=== PATIENT | female | born 1965 | race Hispanic/Latino ===

== ENCOUNTER 2018-01-13 16:47 | Inpatient (IN) | payer BC ==
[~2018-01-13] VITALS: Ht 160 cm; Wt 133.5 kg
[~2018-01-13 16:47] MED LIST: BENICAR40 MG PO; CALTRATE 600 W1 EACH PO; FUROSEMIDE40 MG PO; GLUCOVANCE 5-51 EACH PO; LEVEMIR100 UNIT/1 SQ; NOVOLOG MI100 UNIT/1 SQ; OMEPRAZOLE40 MG PO; SIMVASTATIN20 MG PO
--- OUTSIDE RECORDS SUMMARY | 2018-01-13 16:51 | XMS REPORT ---
Author Author [facility] Address Unknown Phone Unavailable Care Team Providers Care Rooming House Keeper Name Role Phone ABIEL WOLF Unavailable Unavailable Problems This patient has no known problems. Allergies, Adverse Reactions, Alerts This patient has no known allergies or adverse reactions. Medications This patient has no known medications. Results Test Description Test Time Test Comments Text Results Atomic Results Result Comments ANKLE 3+ VIEWS LEFT [place] [address] Patient Name: VINAYAK AZEVEDO MR #: [id number] : 1965 Age/Sex: 52/F Req #: [id number] Adm Physician: Ordered by: ABIEL WOLF MD Report #: [id number] Location: ER Room/Bed: Procedure: [id number] DX/ANKLE 3+ VIEWS LEFT Exam Date: 09/12/17 Exam Time: 1525 REPORT STATUS: Signed Left Ankle - 3 views HISTORY: Pain. COMPARISON: None available. FINDINGS: Bones: No acute displaced fracture. No expansile lytic or sclerotic lesion. Joints: The joint spaces are well-maintained. No dislocation. Soft tissues: The soft tissues appear unremarkable. IMPRESSION: No acute radiographic abnormality. Signed by: Dr. Medhat Hinton M.D. on 2016 3:39 PM Dictated By: MEDHAT HINTON MD [id number] Transcribed By: DAV on 09/12/171538 COPY TO: ABIEL WOLF MD FOOT LEFT COMPLETE [place] [address] Patient Name: VINAYAK AZEVEDO MR #: [id number] : 1965 Age/Sex: 52/F Req #: [id number] Adm Physician: Ordered by: ABIEL WOLF MD Report #: [id number] Location: ER Room/Bed: Procedure: [id number] DX/FOOT LEFT COMPLETE Exam Date: 09/12/17 Exam Time: 1525 REPORT STATUS: Signed Left foot - 3 views HISTORY: Pain. COMPARISON: None available. FINDINGS: Bones: No acute displaced fracture. No expansile lytic or sclerotic lesion. Joints: The joint spaces are well-maintained. No dislocation. Soft tissues: The soft tissues appear unremarkable. IMPRESSION: No acute radiographic abnormality. Signed by: Dr. Medhat Hinton M.D. on 09/12/2017 3: 39 PM Dictated By: MEDHAT HINTON MD 38 Transcribed By: DAV on 09/12/171538 COPY TO: ABIEL WOLF MD
[2018-01-13 17:51] LABS: BILIRUBIN,URINE 1+ (NEGATIVE); KETONES,URINE NEGATIVE (NEGATIVE); LEUKOCYTE ESTERASE ,URINE 1+ (NEGATIVE); URINE UROBILINOGEN 1 mg/dL (0.2 - 1)
[2018-01-13 17:52] LABS: CLARITY,URINE SL CLOUDY (CLEAR); COLOR,URINE STRAW (YELLOW); NITRITE,URINE POSITIVE (NEGATIVE); PROTEIN,URINE DIPSTICK TRACE (NEGATIVE)
[2018-01-13 18:05] LABS: BACTERIA,URINE MANY /HPF; EPITHELIAL CELLS,URINE MODERATE /LPF; RBC,URINE 0-5 /HPF (0-5)
--- NOTE | 2018-01-13 19:12 | Diagnostic Imaging Report ---
PROCEDURE: CT ABDOMEN AND PELVIS WITHOUT CONTRAST TECHNIQUE: The abdomen and pelvis were scanned utilizing a multidetector helical scanner from the diaphragm to the lesser trochanter after the oral administration of water. No IV contrast was administered per protocol. Coronal and sagittal multiplanar reformations were obtained. COMPARISON: Patients [facility], CT, CT ABDOMEN/PELVIS , 06/28/2013, 19:15. INDICATIONS: STONE FINDINGS: ABSENCE OF INTRAVENOUS CONTRAST DECREASES SENSITIVITY FOR DETECTION OF FOCAL LESIONS AND VASCULAR PATHOLOGY. LOWER THORAX: Multiple bilateral calcified granulomata. Lung bases are otherwise clear. HEPATOBILIARY: Marked diffuse hepatic steatosis. The liver is enlarged, measuring 15.8 cm in the right midclavicular line. Calcified granulomata. No other focal lesions. No biliary ductal dilation. Cholecystectomy clips. SPLEEN: No splenomegaly. Multiple calcified splenic granulomata. PANCREAS: No focal masses or ductal dilatation. ADRENALS: No adrenal nodules. KIDNEYS/URETERS: No renal or ureteral calculi, hydronephrosis, or obstruction. Likely, cortical scarring in the left interpolar region. PELVIC ORGANS/BLADDER: Bladder is decompressed, but grossly unremarkable. Uterus is absent. No adnexal masses. PERITONEUM / RETROPERITONEUM: No free air or fluid. Diastases of the recti muscles, with prominent abdominal pannus LYMPH NODES: No lymphadenopathy. VESSELS: Unremarkable. GI TRACT: No bowel dilation or evidence of obstruction. No pericolonic inflammatory changes. BONES AND SOFT TISSUES: No aggressive lytic lesions. Degenerative changes in the lower thoracic and lumbosacral spine. Postoperative changes in the anterior midline lower pelvic wall, without free fluid or fluid collections. Subcutaneous injection sites in the anterior pelvic wall. IMPRESSION: 1. no renal or ureteral calculi. No hydronephrosis, hydroureter, or evidence of obstruction. 2. Hepatomegaly with marked diffuse hepatic steatosis. No suspicious focal lesions. 3. Prior granulomatous disease. Josh Carmichael M.D. Dictated by: Josh Carmichael M.D. on 01/13/2018 at 19:12 Electronically approved by: Josh Carmichael M.D. on 01/13/2018 at 19:12
[2018-01-13] MEDS ORDERED: CEFTRIAXONE SOD 1 GM VIAL IM ONE (19:30)
[2018-01-13] MEDS ORDERED: SODIUM CHLORIDE 0.9% 1000ML 1,000 ML IV STA (20:59)
[2018-01-13] MEDS ORDERED: CEFTRIAXONE SOD 1 GM VIAL IV STA (21:42)
[2018-01-13] MEDS ORDERED: METOPROLOL SUCC50 MG PO (22:03)
[2018-01-13] MEDS ORDERED: HYDROCHLOROTHIA25 MG PO (22:03)
[2018-01-13 22:24] LABS: BASOPHILS % 0.4 % (0.0-1.0); EOSINOPHILS # (AUTO) 0.3 (0.0-0.4); EOSINOPHILS % 2.9 % (0.0-6.0); HEMATOCRIT 39.8 % (34.2-44.1); HEMOGLOBIN 12.9 g/dL (12.0-16.0); LYMPHOCYTES % 27.4 % (18.0-39.1); MEAN CORPUSCULAR HEMOGLOBIN 27.4 pg (28-32); MEAN CORPUSCULAR HGB CONC 32.4 g/dL (31-35); MEAN CORPUSCULAR VOLUME 84.7 fL (81-99); MONOCYTES % 8.8 % (4.4-11.3); NEUTROPHILS # (AUTO) 6.6 (2.1-6.9); NEUTROPHILS % 60.1 % (38.7-80.0); PLATELET COUNT 299 x10e3/uL (140-360); RED CELL DISTRIBUTION WIDTH 13.8 % (11.7-14.4)
[2018-01-13 22:40] LABS: ALBUMIN 3.3 g/dL (3.5-5.0); ALBUMIN/GLOBULIN RATIO 0.9 (0.8-2.0); ANION GAP 15.5 mmol/L (8-16); CALCIUM 10.5 mg/dL (8.4-10.2); CREATININE, SERUM 1.61 mg/dL (0.57-1.11); POTASSIUM 3.5 mmol/L (3.5-5.1)
[2018-01-13] MEDS ORDERED: DEXTROSE 50% SYRINGE 50 ML IV PRN (23:45)
[2018-01-14] VITALS (9 sets, daily range): BP systolic 113–165; BP diastolic 56–76
[2018-01-14] MEDS: SODIUM CHLORIDE 0.9% 1000ML 1,000 ML IV SCH ×4 (01:59→20:28)
[2018-01-14 06:41] LABS: BASOPHILS % 0.4 % (0.0-1.0); EOSINOPHILS # (AUTO) 0.3 (0.0-0.4); EOSINOPHILS % 3.5 % (0.0-6.0); HEMATOCRIT 35.8 % (34.2-44.1); HEMOGLOBIN 11.5 g/dL (12.0-16.0); LYMPHOCYTES # (AUTO) 2.9 (1.0-3.2); LYMPHOCYTES % 32.2 % (18.0-39.1); MEAN CORPUSCULAR HEMOGLOBIN 27.1 pg (28-32); MEAN CORPUSCULAR HGB CONC 32.1 g/dL (31-35); MEAN CORPUSCULAR VOLUME 84.4 fL (81-99); MONOCYTES # (AUTO) 0.8 (0.2-0.8); NEUTROPHILS % 54.6 % (38.7-80.0); PLATELET COUNT 235 x10e3/uL (140-360); RED BLOOD COUNT 4.24 x10e6/uL (3.6-5.1); RED CELL DISTRIBUTION WIDTH 13.9 % (11.7-14.4)
[2018-01-14 07:05] LABS: ALBUMIN 2.8 g/dL (3.5-5.0); ALBUMIN/GLOBULIN RATIO 0.9 (0.8-2.0); ANION GAP 12.5 mmol/L (8-16); CALCIUM 9.9 mg/dL (8.4-10.2); CREATININE, SERUM 1.17 mg/dL (0.57-1.11); POTASSIUM 3.5 mmol/L (3.5-5.1)
[2018-01-14] MEDS: ONDANSETRON HCL INJ 2 MG/ML VIAL IV PRN (07:58)
[2018-01-14] MEDS: MORPHINE SULFATE 2 MG/ML SYR IV PRN (07:58)
[2018-01-14 08:12] LABS: CHOL/HDL RATIO 4.3 (3.0-3.6)
--- NOTE | 2018-01-14 08:31 | History and Physical ---
PRIMARY CARE PHYSICIAN: Dr. Edmund Boggs CHIEF COMPLAINT: Left flank pain. HISTORY OF PRESENT ILLNESS: This is a 52-year-old woman with a history of urinary tract infection, now developing left flank pain for the past few days. Therefore, came to the hospital. Denies any nausea, vomiting or fever. Here she was found to have pyelonephritis, and admitted for further evaluation and management. PAST MEDICAL HISTORY: Diabetes mellitus, type 2, hypertension, morbid obesity, chronic kidney disease, stage unknown, hyperlipidemia, acute gastroenteritis, hyperkalemia, urinary tract infection with Klebsiella pneumonia as well. PAST SURGICAL HISTORY: Abdominal hernia repair, knee replacement. ALLERGIES: PER ELECTRONIC MEDICAL RECORD. FAMILY HISTORY/SOCIAL HISTORY: The patient is . She has 5 children. Denies any alcohol, illicits or cigarettes. MEDICATIONS: Per electronic medical record. REVIEW OF SYSTEMS: Denies any dizziness or chest pain. PHYSICAL EXAMINATION VITAL SIGNS: Reviewed. GENERAL: A tired-appearing woman resting in bed. HEENT: Anicteric. Pupils respond to light. No oral lesions. CARDIOVASCULAR: Normal S1 and S2. LUNGS: Moderate breath sounds. ABDOMEN: Soft, nontender and nondistended. Left flank tender. Right flank nontender. EXTREMITIES: No edema. SKIN: Dry. PSYCHIATRIC: Flat affect. LABS: Reviewed. MEDICATIONS: Reviewed. ASSESSMENT AND PLAN: A 52-year-old woman with: 1. Acute left-sided pyelonephritis: Will continue intravenous ceftriaxone. Follow up cultures. 2. Acute kidney injury: Continue intravenous fluids. Renal function beginning to improve. She does have chronic kidney disease, stage unknown. 3. Diabetes mellitus, type 2: Obtain hemoglobin A1c and lipid panel. Resume insulin regimen. 4. Hyperlipidemia: Continue statin. 5. Hypertension: Continue beta rocio. 6. Hepatomegaly/hepatic steatosis: Related to morbid obesity. 7. Morbid obesity: Body mass index is 52.1. Needs caloric restriction output. 8. Prophylaxis: Will use heparin and proton pump inhibitor. 9. Disposition: Continue intravenous fluids and antibiotics. Follow up cultures. Job#: [id number] CORA
[2018-01-14] MEDS: METOPROLOL SUCCINATE 50 MG TAB XL PO SCH (08:41)
[2018-01-14] MEDS: CEFTRIAXONE SOD 1 GM VIAL IV SCH ×2 (08:41→20:28)
[2018-01-14] MEDS: INSULIN ASPART 70/30 100 UNITS/ML VIAL SC SCH ×2 (08:42→16:30)
[2018-01-14] MEDS: HEPARIN SOD (PORCINE) 5,000 UNIT/ML VIAL SC SCH ×2 (08:43→20:29)
[2018-01-14] MEDS: INSULIN DETEMIR 100 UNIT/ML PEN SQ SCH ×2 (08:43→21:00)
[2018-01-14] MEDS: INSULIN REGULAR, HUMAN 100 UNIT/1 ML 3ML VIAL SQ SCH ×4 (08:44→21:00)
[2018-01-14] MEDS ORDERED: INSULIN DETEMIR SQ SCH (09:00)
[2018-01-14] MEDS ORDERED: NON-FORMULARY MEDICATION (Insuln Asp Prt/Insulin Aspart (Novolog Mix 70-30 Flexpen Syrn) 3 SQ SCH (09:00)
[2018-01-14] MEDS: SIMVASTATIN 20 MG TAB PO SCH (20:28)
[2018-01-14] MEDS: PANTOPRAZOLE SOD 40 MG TABEC PO SCH (20:28)
[2018-01-15] VITALS (8 sets, daily range): BP systolic 106–150; BP diastolic 57–87
[2018-01-15] MEDS: SODIUM CHLORIDE 0.9% 1000ML 1,000 ML IV SCH (02:44)
[2018-01-15] MEDS: INSULIN REGULAR, HUMAN 100 UNIT/1 ML 3ML VIAL SQ SCH ×4 (07:30→20:51)
[2018-01-15] MEDS: INSULIN ASPART 70/30 100 UNITS/ML VIAL SC SCH ×3 (07:30→16:30)
[2018-01-15] MEDS ORDERED: HYDRALAZINE HCL 20 MG/ML VIAL IV PRN (09:00)
[2018-01-15] MEDS: HEPARIN SOD (PORCINE) 5,000 UNIT/ML VIAL SC SCH ×2 (09:00→20:51)
[2018-01-15] MEDS ORDERED: ACETAMINOPHEN 325 MG TAB PO PRN (09:00)
[2018-01-15] MEDS: INSULIN DETEMIR 100 UNIT/ML PEN SQ SCH ×2 (09:00→20:52)
[2018-01-15] MEDS: CEFTRIAXONE SOD 1 GM VIAL IV SCH ×2 (09:00→20:50)
[2018-01-15] MEDS: METOPROLOL SUCCINATE 50 MG TAB XL PO SCH (09:00)
[2018-01-15] MEDS: PANTOPRAZOLE SOD 40 MG TABEC PO SCH (20:50)
[2018-01-15] MEDS: SIMVASTATIN 20 MG TAB PO SCH (20:50)
[2018-01-15] MEDS: MORPHINE SULFATE 2 MG/ML SYR IV PRN (21:00)
[2018-01-15] MEDS: ONDANSETRON HCL INJ 2 MG/ML VIAL IV PRN (21:00)
[2018-01-16 00:23] VITALS: BP 142/83
[2018-01-16 05:17] VITALS: BP 106/88
[2018-01-16 07:25] LABS: BASOPHILS % 0.6 % (0.0-1.0); EOSINOPHILS # (AUTO) 0.3 (0.0-0.4); EOSINOPHILS % 3.6 % (0.0-6.0); HEMATOCRIT 33.7 % (34.2-44.1); HEMOGLOBIN 11.1 g/dL (12.0-16.0); LYMPHOCYTES # (AUTO) 2.5 (1.0-3.2); LYMPHOCYTES % 34.5 % (18.0-39.1); MEAN CORPUSCULAR HEMOGLOBIN 27.5 pg (28-32); MEAN CORPUSCULAR HGB CONC 32.9 g/dL (31-35); MEAN CORPUSCULAR VOLUME 83.4 fL (81-99); MONOCYTES # (AUTO) 0.6 (0.2-0.8); MONOCYTES % 8.3 % (4.4-11.3); NEUTROPHILS # (AUTO) 3.8 (2.1-6.9); NEUTROPHILS % 52.7 % (38.7-80.0); PLATELET COUNT 199 x10e3/uL (140-360); RED BLOOD COUNT 4.04 x10e6/uL (3.6-5.1); RED CELL DISTRIBUTION WIDTH 13.6 % (11.7-14.4)
[2018-01-16] MEDS: INSULIN ASPART 70/30 100 UNITS/ML VIAL SC SCH (07:30)
[2018-01-16] MEDS: INSULIN REGULAR, HUMAN 100 UNIT/1 ML 3ML VIAL SQ SCH (07:30)
[2018-01-16 08:00] VITALS: BP 138/80
[2018-01-16 08:05] LABS: ANION GAP 10.7 mmol/L (8-16); BLOOD UREA NITROGEN 12 mg/dL (7-26); BUN/CREATININE RATIO 14 (6-25); CALCIUM 9.6 mg/dL (8.4-10.2); CARBON DIOXIDE 24 mmol/L (22-29); CHLORIDE 110 mmol/L (98-107); CREATININE, SERUM 0.85 mg/dL (0.57-1.11); EST GLOMERULAR FILTRATION RATE > 60 ML/MIN (60-); GLUCOSE 114 mg/dL (74-118); POTASSIUM 3.7 mmol/L (3.5-5.1); SODIUM 141 mmol/L (136-145)
[2018-01-16 08:22] LABS: MAGNESIUM 0.9 MG/DL (1.3-2.1)
[2018-01-16] MEDS: METOPROLOL SUCCINATE 50 MG TAB XL PO SCH (08:57)
[2018-01-16] MEDS: CEFTRIAXONE SOD 1 GM VIAL IV SCH (08:57)
[2018-01-16] MEDS: INSULIN DETEMIR 100 UNIT/ML PEN SQ SCH (09:00)
[2018-01-16] MEDS: HEPARIN SOD (PORCINE) 5,000 UNIT/ML VIAL SC SCH (09:00)
[2018-01-16] MEDS ORDERED: CEFTIN PO (09:18)
[2018-01-16] MEDS ORDERED: TYLENOL WITH C1 EACH PO (09:18)
[2018-01-16] MEDS ORDERED: MAGNESIUM OXID400 MG PO (09:18)
[2018-01-16] MEDS ORDERED: MAGNESIUM SULFATE 2GM/50ML 50 ML IV ONE (10:00)
--- NOTE | 2018-01-17 00:54 | Discharge Summary ---
ADMISSION DIAGNOSES 1. Acute left-sided pyelonephritis. 2. Acute kidney injury. 3. Diabetes, type 2. 4. Hyperlipidemia. 5. Hypertension. 6. Hepatomegaly. 7. Hepatic steatosis. 8. Morbid obesity. DISCHARGE DIAGNOSES 1. Acute left-sided pyelonephritis. 2. Acute kidney injury. 3. Diabetes, type 2. 4. Hyperlipidemia. 5. Hypertension. 6. Hepatomegaly. 7. Hepatic steatosis. 8. Morbid obesity. 9. Hypomagnesemia. HISTORY: Patient has a history of type-2 diabetes, hypertension, morbid obesity, CKD, stage unknown, hyperlipidemia, acute gastroenteritis, hyperkalemia, UTI with Klebsiella pneumoniae as well. Surgical history of abdominal hernia repair and knee replacement. HOSPITAL COURSE: A 52-year-old female with the history of UTI, now developing left flank pain for the past 2 days; therefore, she came to the hospital. On admission, she had a CT of the abdomen that showed no renal or ureteral calculi. No hydronephrosis, hydroureter or evidence of obstruction. Hepatomegaly with marked diffuse hepatic steatosis. No suspicious focal lesions. Blood cultures were negative. Urine culture showed E. coli and strep group B sensitive to Rocephin. On admission, she was started on Rocephin and IV fluids. At time of discharge, WBC was 7.14, hemoglobin of 11.1, hematocrit of 33.7. Sodium 141, potassium 3.7, magnesium of 0.9, creatinine of 0.85. GFR over 60, BUN of 12, her A1c was 10.3. Patient was advised to follow up with primary care to adjust her insulin dosage. She was resumed on all home medicines for diabetes, blood pressure, and GERD, and hyperlipidemia. She was added Ceftin 500 b.i.d. for 7 more days and Mag-Ox 400 mg b.i.d. She was also given 2 g mag IV prior to discharge and sent home with Tylenol No. 3 as needed for pain for just 7 days. She will follow up with primary care in 1-2 weeks and take a sugar log when she follows up. Dictated by: Brinda Walters NP EDISON ROSENBERG MD Job#: [id number] CQ
== END 2018-01-16 14:10 | disposition home or self-care (01) | DRG 690 ==
LOC: ER 16:47 → IMCU 23:44 → OBSVTOIN 01-14 07:40 → MED/SURG2 01-14 16:01
PROVIDERS: ADMIT Internal Medicine; ATTEND Internal Medicine
DX: N10 Acute pyelonephritis (principal); N17.9 Acute kidney failure, unspecified; Z68.43 Body mass index [BMI] 50.0-59.9, adult; E11.65 Type 2 diabetes mellitus with hyperglycemia; R16.0 Hepatomegaly, not elsewhere classified; E83.42 Hypomagnesemia; E78.5 Hyperlipidemia, unspecified; N28.89 Other specified disorders of kidney and ureter; E66.01 Morbid (severe) obesity due to excess calories; I12.9 Hypertensive chronic kidney disease with stage 1 through stage 4 chronic kidney disease, or unspecified chronic kidney disease; N18.9 Chronic kidney disease, unspecified; Z87.440 Personal history of urinary (tract) infections
CPT/HCPCS: 36415; 74176; 80048; 80053; 80061; 81001; 82948; 83036; 83735; 85025; 87040; 87086; 87186; 96372; 96376; 99284; G0378; J0696; J1644; J1815; J2270; J2405; J7030

== ENCOUNTER 2018-05-01 21:56 | Emergency (ER) | payer BC ==
[~2018-05-01] VITALS: Ht 160 cm; Wt 134.7 kg
[~2018-05-01 21:56] MED LIST changes: +CEFTIN PO; +HYDROCHLOROTHIA25 MG PO; +MAGNESIUM OXID400 MG PO; +METOPROLOL SUCC50 MG PO; +TYLENOL WITH C1 EACH PO
[2018-05-01 22:49] VITALS: BP 132/71
== END 2018-05-01 22:53 | disposition home or self-care (01) ==
LOC: ER 21:56
DX: L03.311 Cellulitis of abdominal wall (principal); I10 Essential (primary) hypertension; E11.9 Type 2 diabetes mellitus without complications; E78.5 Hyperlipidemia, unspecified; K21.9 Gastro-esophageal reflux disease without esophagitis; E66.9 Obesity, unspecified
CPT/HCPCS: 99283

== ENCOUNTER 2019-07-09 18:03 | Emergency (ER) | payer BC ==
[~2019-07-09] VITALS: Ht 160 cm; Wt 134.7 kg
[2019-07-09 18:23] LABS: BILIRUBIN,URINE NEGATIVE (NEGATIVE); CLARITY,URINE SL CLOUDY (CLEAR); COLOR,URINE YELLOW (YELLOW); KETONES,URINE NEGATIVE (NEGATIVE); LEUKOCYTE ESTERASE ,URINE NEGATIVE (NEGATIVE); NITRITE,URINE NEGATIVE (NEGATIVE); PROTEIN,URINE DIPSTICK NEGATIVE (NEGATIVE); URINE UROBILINOGEN 0.2 mg/dL (0.2 - 1)
[2019-07-09 19:18] LABS: BASOPHILS % 0.4 % (0.0-1.0); EOSINOPHILS # (AUTO) 0.3 (0.0-0.4); EOSINOPHILS % 3.1 % (0.0-6.0); HEMATOCRIT 36.7 % (34.2-44.1); LYMPHOCYTES # (AUTO) 2.3 (1.0-3.2); LYMPHOCYTES % 25.3 % (18.0-39.1); MEAN CORPUSCULAR HEMOGLOBIN 27.6 pg (28-32); MEAN CORPUSCULAR HGB CONC 32.7 g/dL (31-35); MEAN CORPUSCULAR VOLUME 84.4 fL (81-99); MONOCYTES # (AUTO) 0.8 (0.2-0.8); MONOCYTES % 8.4 % (4.4-11.3); NEUTROPHILS # (AUTO) 5.5 (2.1-6.9); NEUTROPHILS % 62.2 % (38.7-80.0); PLATELET COUNT 227 x10e3/uL (140-360); RED BLOOD COUNT 4.35 x10e6/uL (3.6-5.1); RED CELL DISTRIBUTION WIDTH 13.2 % (11.7-14.4)
[2019-07-09 19:24] LABS: BACTERIA,URINE FEW /HPF; RBC,URINE 0-5 /HPF (0-5); WBC,URINE (MAN) 0-5 /HPF (0-5)
[2019-07-09 19:25] LABS: EPITHELIAL CELLS,URINE MANY /LPF
[2019-07-09 19:37] LABS: ALBUMIN 3.1 g/dL (3.5-5.0); ALBUMIN/GLOBULIN RATIO 0.9 (0.8-2.0); ANION GAP 15.8 mmol/L (8-16); CALCIUM 10.2 mg/dL (8.4-10.2); CREATININE, SERUM 1.23 mg/dL (0.57-1.11); POTASSIUM 3.8 mmol/L (3.5-5.1)
[2019-07-09] MEDS ORDERED: SODIUM CHLORIDE 0.9% 1000ML 1,000 ML IV SCH (20:00)
[2019-07-09] MEDS ORDERED: INSULIN REGULAR, HUMAN 100 UNIT/1 ML 3ML VIAL IV ONE (20:00)
== END 2019-07-09 21:11 | disposition home or self-care (01) ==
LOC: ER 18:03
DX: R30.0 Dysuria (principal); S39.012A Strain of muscle, fascia and tendon of lower back, initial encounter; N30.00 Acute cystitis without hematuria; I10 Essential (primary) hypertension; E11.9 Type 2 diabetes mellitus without complications; E78.5 Hyperlipidemia, unspecified; N18.9 Chronic kidney disease, unspecified; K21.9 Gastro-esophageal reflux disease without esophagitis; Z96.651 Presence of right artificial knee joint
CPT/HCPCS: 36415; 80053; 81001; 83735; 85025; 87086; 99284; J7030